=== PATIENT | female | born 1945 | race Caucasian/White ===

== ENCOUNTER → 2016-07-18 | Outpatient (CLI) | payer OTHER, MEDICARE ==
[~2016-07-18] MED LIST: ACYCLOVIR 400400 MG PO; ANTIVERT25 MG PO; ASPIR 8181 MG PO; ATIVAN PO; ATIVAN1 MG PO; ATORVASTATIN CA40 MG PO; AZITHROMYCIN 2250 MG PO; CEFTIN 250 MG250 MG PO; COMBIVENT INH; COUGH SYRU100 MG/5 M PO; CYMBALTA60 MG PO; DIPHENHIST50 MG PO; DUONEB 2.5-0.5 M3 ML INH; HYDROCODONE-AP1 EAC6 PO; I-VITE TABLET1 EACH PO; IBUPROFEN 800800 M1 PO; LEVOTHYROXIN0.125 M1 PO; LIPITOR PO; LISINOPRIL10 MG PO; MOBIC7.5 MG PO; MUCUS RELIEF400 MG PO; MUCUS RELIEF600 MG PO; OXYGEN NASAL; PERI-COLACE TA1 EACH PO; VITAMIN E400 UNIT PO; VITAMINC500 PO; WELLBUTRIN XL150 MG PO
--- NOTE | ~2016-07-18 | CARDNUC ---
[facility] [place] [address] CARDIAC NUCLEAR IMAGING REPORT Name: YEE OSORIO Room #: REG CL [facility]#: [id number] Admission: 07/18/16 Attend Phys: Jaime Quintanilla, Discharge: Date of : 43 Date of Service: 07/18/16 1701 Report #: [id number] THIS REPORT FOR: //name// CC: Jaime Quintanilla Eleazar Chavarria Elmer Canada DATE OF SERVICE: 07/18/2016 VASODILATOR GATED SPECT MYOCARDIAL PERFUSION IMAGING: Regadenoson. REFERRING PHYSICIAN: Elmer Canada MD. REFERRING METAPHYSICS TEACHER: Albino Quintanilla MD [facility]. DATE OF STUDY: 07/18/2016. INDICATIONS FOR STUDY: Preoperative evaluation for surgical clearance. RISK FACTORS: Age, history of tobacco use. CARDIAC HISTORY: None listed. CARDIAC MEDICATIONS: A blood pressure pill, she did know the name, it was 10 mg. GENDER: Female. PROCEDURE: The patient was given 0.4 mg of intravenous regadenoson (Lexiscan) administered over approximately 20 seconds. The patient did not complain of chest discomfort during the infusion. In response to complaints of chest discomfort the patient was not given intravenous aminophylline. At baseline the BP was 140/76 and the HR was 72; at completion of the regadenoson infusion the BP was 125/58 and the HR was 90. At completion of the recovery phase the BP was 132/79 and the HR was 86. Baseline EKG demonstrated normal sinus rhythm, this is normal EKG. The EKG at completion of the administration of regadenoson demonstrated no significant change in EKG during or after regadenoson administration. There was no significant ST-segment depression during or after regadenoson administration. Rhythm disturbances included none. Gated-SPECT myocardial perfusion imaging was performed using a 1-day imaging protocol and a single isotope technique. The 10.5 mCi of Tc-99m sestamibi was administered intravenously at rest; 32.1 mCi of Tc-99m sestamibi was administered intravenously within 20 seconds of the completion of the [facility] [address] [place] [address] CARDIAC NUCLEAR IMAGING REPORT Name: DEVONYEE CHRISTINERICHA Room #: REG [facility]#: [id number] Admission: 07/18/16 Attend Phys: Jaime Quintanilla, Discharge: Date of : 43 Date of Service: 07/18/16 1701 Report #: [id number] administration of regadenoson. Imaging was obtained in the supine position and when feasible, adjunctive stress imaging in the prone position was obtained. FINDINGS: The overall quality of the study was good. There was some evidence of attenuation artifact. There was no evidence of abnormal extracardiac uptake of the radionuclide. The baseline imaging study demonstrated a small mild apical defect, a small mild inferior defect and a small mild septal defect. The imaging obtained following the administration of the vasodilator demonstrated a very small, very mild inferior defect and therefore, no reversible defects seen. There was no evidence of myocardial ischemia. The patient did not have prone imaging. On gated analysis the left ventricle demonstrated normal contractility without segmental wall motion abnormality. The gated ejection fraction was 90%. The left ventricle was of normal size at rest and did not dilate with the administration of the vasodilator. The TID was 1.02. IMPRESSION: CLINICAL RESPONSE: Nonischemic. STRESS EKG RESPONSE: Nondiagnostic due to heart rate, it is inadequate to exclude ischemia. MYOCARDIAL PERFUSION STUDY: Nonischemic. FUNCTIONAL CAPACITY: Not assessed. CONCLUSIONS: The Lexiscan Cardiolite stress test demonstrates low probability for myocardial ischemia. Overall, this is a low risk Lexiscan Cardiolite stress test. <ELECTRONICALLY SIGNED> By: Jaime Quintanilla MD, FACC 07/19/16 1510 1701 1746 Jaime Quintanilla MD, FACC /nt
--- NOTE | ~2016-07-18 | 2DMMODE ---
[facility] [address] [place] [address] 2 D/M-MODE ECHOCARDIOGRAM Name: YEE OSOROI Room #: REG CL [facility]#: [id number] Admission: 07/18/16 Attend Phys: Jaime Quintanilla, Discharge: Date of : 43 Date of Service: 07/18/1614 Report #: [id number] THIS REPORT FOR: //name// APPROVED REPORT Study performed: 07/18/2016 07:22:05 EXAM: Comprehensive 2D, Doppler, and color-flow Echocardiogram Patient Location: Out-Patient Blood Pressure: 130/76 mmHg HR: 76 bpm Rhythm: NSR Other Information Study Quality: Fair/Poor parasternal window. Technically limited study due to lung disease. Indications Elevated BP Pre-Op Chest Pain Hx: HTN, HLP, COPD, obesity 2D Dimensions RVDd: 36.71 mm LVEF(%): 58.11 (>50%) IVSd: 10.98 (7-11mm) LVOT Diam: 19.17 (18-24mm) LVDd: 46.80 mm PWd: 9.57 (7-11mm) LVDs: 32.48 (25-40mm) Aortic Root: 33.43 mm Shah's LVEF: 58.11 % Volumes Left Atrial Volume (Systole) Single Plane 4CH: 34.52 mL Single Plane 2CH: 28.77 mL LA ESV Index: 18.00 mL/m2 Aortic Valve AoV Peak Jase.: 1.82 m/s AO Peak Gr.: 13.21 mmHg LV Max P.66 mmHg LV Max: 1.08 m/s [facility] [address] [address] 2 D/M-MODE ECHOCARDIOGRAM Name: YEE OSORIO Room #: REG CL [facility]#: [id number] Admission: 07/18/16 Attend Phys: Jaime Quintanilla, Discharge: Date of : 43 Date of Service: 07/18/16 0914 Report #: [id number] Mitral Valve MV PHT: 64.76 ms MV E Max Jase.: 0.78 m/s E/A Ratio: 0.8 MV A Jase.: 1.01 m/s MV Decel. Time: 223.32 ms Pulmonary Valve PV Peak Jase.: 1.15 m/s PV Peak Gr.: 5.41 mmHg Tricuspid Valve RAP Estimate: 5.00 mmHg Left Ventricle The left ventricle is normal size. Limited endcoardial definition , but no wall motion abnormalities seen. There is normal left ventricular wall thickness. Left ventricular systolic function is normal. LVEF is 60-65%. Grade I - abnormal relaxation pattern. Right Ventricle The right ventricle is normal size. The right ventricular systolic function is normal. Atria The left atrium size is normal. The right atrium size is normal. Aortic Valve Aortic valve is mildly calcified. The aortic valve is not well visualized. Trace to mild aortic regurgitation. There is no apparent aortic valvular stenosis. Mitral Valve The mitral valve is normal in structure. Trace mitral regurgitation. Tricuspid Valve The tricuspid valve is normal in structure. Tricuspid valve is not well visualized. There is no tricuspid valve regurgitation noted. Pulmonic Valve The pulmonary valve is not seen Trace pulmonic regurgitation. Great Vessels The aortic root is normal in size. Ascending aorta is not well visualized. IVC is normal in size and collapses >50% with inspiration. [facility] [place] [address] 2 D/M-MODE ECHOCARDIOGRAM Name: YEE OSORIO Room #: REG CL [facility]#: [id number] Admission: 07/18/16 Attend Phys: Jaime Quintanilla, Discharge: Date of : 43 Date of Service: 07/18/16913 Report #: [id number] Pericardium There is no pericardial effusion. <Conclusion> Limited endcoardial definition , but no wall motion abnormalities seen. LVEF is 60-65%. Grade I - abnormal relaxation pattern. Aortic valve is mildly calcified. The aortic valve is not well visualized. There is no apparent aortic valvular stenosis. Trace to mild aortic regurgitation. There is no pericardial effusion. <ELECTRONICALLY SIGNED> By: Sudheer Hearn MD, [facility] 07/18/16913 3 3 Sudheer Hearn MD, FAC /INF
== END ==
LOC: NUC 07:48
DX: Z01.818 Encounter for other preprocedural examination (principal); I10 Essential (primary) hypertension; R07.9 Chest pain, unspecified; E78.5 Hyperlipidemia, unspecified; J44.9 Chronic obstructive pulmonary disease, unspecified; E66.9 Obesity, unspecified

== ENCOUNTER 2017-05-09 12:50 | Emergency (ER) | payer OTHER, MEDICARE ==
[~2017-05-09] VITALS: Ht 162.6 cm; Wt 90.7 kg
[~2017-05-09 12:50] MED LIST changes: +LIPITOR80 MG PO
[2017-05-09] MEDS ORDERED: HYDROCODONE-AP1 EAC6 PO (13:57)
[2017-05-09 14:39] VITALS: BP 199/97
[2017-07-24] MEDS ORDERED: NEURONTIN600 MG PO (09:51)
== END 2017-05-09 14:40 | disposition home or self-care (01) ==
LOC: ER 12:50
DX: G89.29 Other chronic pain (principal); M54.5 Low back pain; I10 Essential (primary) hypertension; J44.9 Chronic obstructive pulmonary disease, unspecified; E03.9 Hypothyroidism, unspecified; E78.5 Hyperlipidemia, unspecified; Z86.14 Personal history of Methicillin resistant Staphylococcus aureus infection; Z88.8 Allergy status to other drugs, medicaments and biological substances; Z87.891 Personal history of nicotine dependence

== ENCOUNTER → 2017-07-24 | Outpatient (CLI) | payer OTHER, MEDICARE ==
[~2017-07-24] VITALS: Ht 165.1 cm; Wt 86.2 kg
[~2017-07-24] MED LIST changes: +NEURONTIN600 MG PO
--- NOTE | ~2017-07-24 | HPC ---
[facility] [address] [place] [address] PAIN MANAGEMENT CONSULTATION Name: YEE OSORIO [id number] Admission: 07/24/17 Attend Phys: Wojciech Lopez DO Discharge: Date of : 43 Report #: [id number] THIS REPORT FOR: //name// CC: Wojciech Canada DATE OF SERVICE: 07/24/2017 REFERRING PHYSICIAN: Manny Bazzi MD CHIEF COMPLAINT: Low back pain, right lower extremity pain with paresthesias. HISTORY OF PRESENT ILLNESS: As you know, the patient is a 72-year-old female who has had a longstanding history of low back pain and right lower extremity pain. She is now placing pain at 6/10. She states her pain intensified about 4 months ago, no inciting injury or trauma. She had bilateral hip injections, which provided no improvement in symptoms. She was subsequently referred to our clinic after failing treatment from the bilateral hip injections and medical management. She indicates pain is intermittent, describes the pain as burning, shooting, aching, gnawing, throbbing and sharp. She places pain score at 6/10, daily average at 6/10, worst pain has been is 10+++/10. The patient states that standing, sitting up can be quite painful as well as doing daily chores, heat or cold compresses, lying down with feet elevated tends to improve pain. She has been referred to our service to discuss requested epidural injections under fluoroscopic guidance to address lumbar radicular symptoms radiating all the way down to the right foot. PAST MEDICAL HISTORY: 1. Dyslipidemia. 2. Hypertension. 3. Chronic lung disease. 4. Thyroid disease. 5. Emotional problems. 6. Degenerative joint disease. 7. Osteoarthritis. 8. History of skin cancers. PAST SURGICAL HISTORY: 1. Right total shoulder arthroplasty. 2. Total hysterectomy. SOCIAL HISTORY: The patient reports she is a nonsmoker, but review of chart shows she is a current every day smoker. She denies IV or illicit drug use, admits to approximately 1-2 glasses of red wine per day. She is a retired registered nurse. She is not receiving workmen's compensation nor is she trying [address] [address] PAIN MANAGEMENT CONSULTATION Name: YEE OSORIO Room #: REG [facility].#: [id number] Admission: 07/24/17 Attend Phys: Wojciech Lopez DO Discharge: Date of : 43 Report #: [id number] to obtain disability benefits. She is not in litigation in regards to her pain. REVIEW OF SYSTEMS: Positive for weight gain, decrease in appetite, fatigue and weakness, eye disease, double vision, tinnitus, shortness of breath with walking or lying flat, chronic coughs, asthma, wheezing, loss of appetite, changes in bowel movements, change of force or stream of urination, incontinence and dribbling to urine, varicose veins, numbness and tingling sensations, memory loss with confusion, nervousness, depression, thyroid disease, slow to heal after cuts. All other review of systems negative per 12-point review of systems other than those listed in history of present illness. PAIN IMPACT SCORE: 66/70 indicating near complete interference of daily activities secondary to pain. ALLERGIES: FENTANYL. CURRENT MEDICATIONS: Gabapentin 600 mg 3 times a day, hydrocodone 5/325 one tab every 8 hours p.r.n. for pain, atorvastatin 80 mg per day, lorazepam 1 mg p.r.n., duloxetine 60 mg once a day, Meloxicam 7.5 mg twice a day, vitamin E 400 units per day, ascorbic acid 500 mg per day, aspirin 81 mg per day, vitamin supplementation 1 tab per day, acyclovir 400 mg once a day, guaifenesin 400 mg twice a day, DuoNeb 4 times a day, diphenhydramine 50 mg p.o. at bedtime, Combivent p.r.n., lisinopril 10 mg per day, levothyroxine 125 mcg per day. IMAGING: MRI lumbar spine obtained 02/22/2017, shows T12-L1 mild disk bulge. L1-L2, mild disk bulge. L2-L3, mild disk bulge and facet arthrosis. L3-L4, mild disk bulge with mild facet arthrosis. L4-L5, broad-based osteophyte complex, moderate facet arthrosis. There are laminectomy changes at this level, severe right and mild left neural foraminal stenosis. L5-S1, broad-based disk bulge eccentric to the left, laminectomy changes at this level, mild facet arthrosis, mild bilateral foraminal stenosis, conus and cauda equina are unremarkable. PQRS: The patient has known osteoarthritis. No rheumatoid arthritis. She is indicating pain intensity of 6/10. She is a fall risk. She has had a fall in the last 3 months. She is not on blood thinner. She is treated for hypertension. She is on opioid contract, taking opioids currently. She shows a moderate risk for opioid addiction. Functional assessment pain impact tools 66/70 indicating near complete interference of daily activities secondary to pain. PHYSICAL EXAMINATION: VITAL SIGNS: Blood pressure 138/66, pulse 89, respiratory rate 16 and unlabored, the patient is 94% on room air, height 5 feet 5 inches tall, weight 190 pounds, BMI calculated 31.6. GENERAL: Well-developed, well-nourished, well-hydrated 72-year-old female, [facility] [address] [place] [address] PAIN MANAGEMENT CONSULTATION Name: YEE OSORIO Room #: REG [facility]#: [id number] Admission: 07/24/17 Attend Phys: Wojciech Lopez DO Discharge: Date of : 43 Report #: [id number] appearing her stated age, placing current pain score at 6/10. HEENT: Normocephalic, atraumatic. Pupils are equal, round, and reactive to light. Extraocular muscles are intact. Sclerae are nonicteric without injection. NEUROLOGIC: Cranial nerves 2 through 12 are grossly intact. Speech is fluent. The patient deemed a fair historian. LUNGS: Clear. No wheezes, rhonchi, or rales. CARDIOVASCULAR: Regular. No appreciable gallop or rub. ABDOMEN: Soft, nontender, nondistended. EXTREMITIES: Show no clubbing, no cyanosis, and no edema. MUSCULOSKELETAL: Lower extremity strength appears equal and symmetrical 5/5. Seated straight leg raising negative. Supine straight leg raising negative. Melvin's test is negative. Modified Gaenslen's positive for axial low back pain. Ankle clonus negative. Babinski is negative. The patient has antalgic gait favoring right lower extremity over left. Muscle bulk and tone equal and symmetrical in the lower extremities, intact to light touch from L1 through S2 dermatomes. Patellar reflexes and ankle reflexes equal and symmetrical. No focal neurologic deficits. ASSESSMENT: 1. Lumbar radiculopathy. 2. Displacement of lumbar intervertebral disk with radiculopathy. 3. Lumbosacral spondylosis with radiculopathy. 4. Foraminal stenosis of lumbar spine. 5. Chronic intractable pain. PLAN: 1. Based on today's physical exam and history the patient is providing, the description the patient uses in regards to pain as well as the distribution of symptoms likely source of the patient's pain is lumbar radiculopathy. We have discussed with the patient the findings of her MRI, it does appear that she is suffering from foraminal stenosis causing the right lower extremity symptoms. As you are aware, the patient has severe foraminal stenosis on the right at the L4-L5 level, which does correlate with symptoms. She has failed conservative treatment with medication management and she was subsequently referred to our clinic to trial injection therapy. We also discussed the other treatment options that are available for lumbar radicular pain today. These would include the following. We discussed physical therapy, stretching exercises, core strengthening as well as any effort at weight loss that can be obtained. We discussed medication management with escalating the doses of neuropathic pain medications and additional nonsteroidal anti-inflammatory or rotation in anti-inflammatory therapy. We discussed the epidural injection for which the patient was referred to our clinic, spinal cord stimulator therapy and surgical options. After reviewing risks and benefits of all proposed treatment options, the patient [address] [address] PAIN MANAGEMENT CONSULTATION Name: OSORIOYEE Room #: REG [facility]#: [id number] Admission: 07/24/17 Attend Phys: Wojciech Lopez DO Discharge: Date of : 43 Report #: [id number] chose to begin with epidural injection under fluoroscopic guidance. The patient was advised the risks and benefits of a lumbar epidural injection, these risks include, but are not necessarily limited to bleeding, bruising, infection, worsening pain, no relief of pain, also risk of temporary or permanent muscle weakness, temporary or permanent nerve damage, possible paralysis and . The patient states she understood and wished to proceed. 2. No medication changes were made at today's visit. The patient will continue current medical therapy as previously prescribed. 3. The patient will return to our clinic on an as needed basis for next in a series of epidural injections. 4. We wish to thank Dr. Bazzi for the referral of this patient to our clinic. We will keep you apprised of her response to treatment as we address her lumbar radicular symptoms. Again, we wish to thank you for the opportunity to participate in her care. PROCEDURE NOTE DESCRIPTION OF PROCEDURE: Lumbar epidural steroid injection under fluoroscopic guidance. After obtaining written consent, the patient was taken back to fluoroscopy suite, placed in prone position with pillow under abdomen to decrease lumbar lordosis. Skin overlying lumbosacral area then prepped and draped in aseptic fashion. Lumbar intervertebral space was identified by AP fluoroscopy. Skin and subcutaneous tissue overlying target site of injection was anesthetized with 3 mL of 1% lidocaine. A 20-gauge 3-1/2-inch Tuohy needle advanced under fluoroscopic guidance towards the epidural space using right paramedian approach. Epidural space identified using loss of resistance to air technique. After negative aspiration for heme or cerebrospinal fluid, 1 mL of Omnipaque was injected. A lumbar epidurogram was confirmed using both AP and lateral fluoroscopy. After negative aspiration for heme or cerebrospinal fluid, 5 mL of a solution containing 2 mL 40 mg per mL, 80 mg total triamcinolone, 3 mL lidocaine 1% injected slowly. Needle retracted care home, flushed with 1 mL of 1% lidocaine and removed. Sterile bandage placed over injection site. No new motor deficits present in lower extremity following procedure. The patient tolerated the procedure well, carefully escorted to recovery room in stable condition. No apparent complication. After meeting discharge criteria, the patient discharged home. <ELECTRONICALLY SIGNED> By: Wojciech Lopez DO 07/31/17 1207 1555 1941 Wojciech Lopez DO /nt
[2017-07-24 09:24] VITALS: BP 138/66
== END | disposition home or self-care (01) ==
LOC: PAIN 06:47
DX: M51.16 Intervertebral disc disorders with radiculopathy, lumbar region (principal); M47.27 Other spondylosis with radiculopathy, lumbosacral region; M48.061 Spinal stenosis, lumbar region without neurogenic claudication; G89.29 Other chronic pain; E78.5 Hyperlipidemia, unspecified; I10 Essential (primary) hypertension; J44.9 Chronic obstructive pulmonary disease, unspecified; E07.9 Disorder of thyroid, unspecified; M19.90 Unspecified osteoarthritis, unspecified site; Z85.828 Personal history of other malignant neoplasm of skin; Z90.710 Acquired absence of both cervix and uterus; Z96.611 Presence of right artificial shoulder joint; Z88.8 Allergy status to other drugs, medicaments and biological substances; Z79.899 Other long term (current) drug therapy; Z79.82 Long term (current) use of aspirin; Z98.890 Other specified postprocedural states

== ENCOUNTER → 2017-11-12 | Outpatient (CLI) | payer OTHER, MEDICARE ==
[~2017-11-12] VITALS: Ht 165.1 cm; Wt 88.8 kg
--- NOTE | ~2017-11-12 | HPC ---
[address] [address] PAIN MANAGEMENT CONSULTATION Name: YEE OSORIO Room #: REG [facility].#: [id number] Admission: 11/12/17 Attend Phys: Wojciech Lopez DO Discharge: Date of : 43 Report #: [id number] THIS REPORT FOR: //name// CC: Wojciech Canada MD DATE OF SERVICE: 11/12/2017 CHIEF COMPLAINT: Low back pain, right lower extremity pain and paresthesias. HISTORY OF PRESENT ILLNESS: As you know, the patient is a 72-year-old female who returns today in followup visit to undergo next in the series of epidural injections. The patient was referred to our clinic by Dr. Manny Bazzi for trial of epidural injections. We saw the patient in consultation on 07/24/2017, at that visit she underwent an epidural injection under fluoroscopic guidance. She returns today in followup visit to undergo next in the series. This is the third and final in the series of epidural injections, next injection would be available 02/23/2018. She has requested to undergo the epidural injection today to address 5/10 pain. She denies new injury, new trauma or any changes in medical history since our last visit. ALLERGIES: FENTANYL and HYDROMORPHONE. CURRENT MEDICATIONS: Gabapentin, hydrocodone, atorvastatin, lorazepam, duloxetine, oxygen concentrated, Meloxicam, vitamin E, ascorbic acid, aspirin, vitamin supplementation, Senokot S, acyclovir, guaifenesin, ipratropium bromide, diphenhydramine, lisinopril and levothyroxine. SOCIAL HISTORY: The patient reports herself as a nonsmoker, but review of chart once again indicates an everyday smoker. Denies IV or illicit drug use. Admits to 2 glasses of wine per day. She is unaccompanied. PQRS: The patient has known osteoarthritis of the lumbar spine, no rheumatoid arthritis. She is indicating pain intensity of 5/10. She is not a fall risk and has not had a fall in the last 3 months. She is not on blood thinners. She is treated for hypertension. She is on opioids for greater than 6 weeks. She has a moderate risk for opioid addiction. Pain impact score is rated at 66/70 once again today. PHYSICAL EXAMINATION: VITAL SIGNS: Blood pressure 158/97, pulse is 98, respiratory rate 16 and unlabored, the patient is 97% on room air, height 5 feet 5 inches tall, weight 195.8 pounds, and BMI calculated 32.6. GENERAL: Well-developed, well-nourished, well-hydrated 72-year-old female, [place] [address] PAIN MANAGEMENT CONSULTATION Name: YEE OSORIO CHRISTINERICHA Room #: REG [facility]#: [id number] Admission: 11/12/17 Attend Phys: Wojciech Lopez DO Discharge: Date of : 43 Report #: [id number] appearing stated age, she is placing current pain score at 5/10. HEENT: Normocephalic, atraumatic. Pupils are responsive. Extraocular muscles are intact. Speech is fluent for patient. EXTREMITIES: Show no clubbing, no cyanosis. MUSCULOSKELETAL: Lower extremity strength equal and symmetrical, but noted deconditioning bilaterally. Seated straight leg raising negative. Supine straight leg raising mildly positive. Melvin's test negative. Modified Gaenslen's positive for axial low back pain. ASSESSMENT: 1. Symptomatic lumbar radiculopathy. 2. Displacement of lumbar intervertebral disk with radiculopathy. 3. Lumbosacral spondylosis with radiculopathy. 4. Neural foraminal stenosis of the lumbar spine. 5. Lumbar degeneration. 6. Chronic intractable pain. PLAN: 1. The patient returns today in followup visit to undergo the third and final in series of lumbar epidural injections under fluoroscopic guidance. The patient has undergone epidural injections in July, once again in August, and now in October. Next available epidural injection would be 02/23/2018. The patient was advised of such today. She does wish to utilize the third in the series of epidural injections at this visit. 2. No medication changes made at today's visit. The patient will continue current medical therapy as previously prescribed. 3. We will see the patient back in followup visit in February for possible next in the series of epidural injections. PROCEDURE NOTE DESCRIPTION OF PROCEDURE: Lumbar epidural steroid injection under fluoroscopic guidance. This is the third procedure of the first series that the patient is undergoing. After obtaining written consent, the patient was taken back to the fluoroscopy suite, placed in a prone position with pillow under the abdomen to decrease lumbar lordosis. The skin overlying the lumbosacral area was then prepped and draped in aseptic fashion. The lumbar vertebral interspace was then identified by AP fluoroscopy. The skin and subcutaneous tissue overlying the target site of injection was anesthetized with 3 mL 1% lidocaine. A 20-gauge 3-1/2-inch Tuohy needle was then advanced under fluoroscopic guidance towards the epidural space using a paramedian approach. The epidural space was identified using loss of resistance to air technique. After negative aspiration [address] [address] PAIN MANAGEMENT CONSULTATION Name: YEE OSORIO Room #: REG [facility]#: [id number] Admission: 11/12/17 Attend Phys: Wojciech Lopez DO Discharge: Date of : 43 Report #: [id number] for heme or cerebrospinal fluid, a total of 0.4 mL of Omnipaque was injected. A lumbar epidurogram was confirmed using both AP and lateral fluoroscopy. After negative aspiration for heme or cerebrospinal fluid, 5 mL of a solution containing 2 mL 40 mg per mL, 80 mg total triamcinolone, 3 mL lidocaine 1% was injected in increments. Contrast spread was noted posterior epidural space. The needle was then retracted approximately half way and needle tract flushed with 1 mL of 1% lidocaine. Needle was then removed. There were no apparent sensory or motor deficits in the lower extremity following the procedure. A sterile bandage was placed over the injection site. The heart rate, pulse, oximetry and blood pressure were continuously monitored after the procedure. There were no apparent complications. The patient tolerated the procedure well and was carefully escorted to the recovery room in stable condition. There were no apparent complications. After meeting discharge criteria, the patient was then discharged home. By: 0730 1725 Wojciech Lopez DO /nt
[2017-11-12 11:07] VITALS: BP 158/97
== END | disposition home or self-care (01) ==
LOC: PAIN 06:35
DX: M51.16 Intervertebral disc disorders with radiculopathy, lumbar region (principal); M47.27 Other spondylosis with radiculopathy, lumbosacral region; M48.061 Spinal stenosis, lumbar region without neurogenic claudication; G89.29 Other chronic pain; I10 Essential (primary) hypertension; J44.1 Chronic obstructive pulmonary disease with (acute) exacerbation; Z88.8 Allergy status to other drugs, medicaments and biological substances; F17.210 Nicotine dependence, cigarettes, uncomplicated; Z79.891 Long term (current) use of opiate analgesic; Z79.899 Other long term (current) drug therapy

== ENCOUNTER 2018-03-05 13:07 | Emergency (ER) | payer OTHER, MEDICARE ==
[~2018-03-05] VITALS: Ht 165.1 cm; Wt 77.1 kg
--- NOTE | ~2018-03-05 | EKG ---
[address] [place] [address] ELECTROCARDIOGRAM REPORT Name: YEE OSORIO [facility] [id number] Admission: 03/05/18 Attend Phys: Discharge: 03/05/18 Date of : 43 Report #: [id number] THIS REPORT FOR: //name// [facility] ED Test Date: 2018-03-05 Test Time: 13:27:02 Pat Name: YEE OSORIO Department: Room: Gender: F Prosthodontist/Owner: JLCRISTIANO : 1945 Requested By: Jorden Wilks Order Number: [id number] MD: Antonio Quevedo Measurements Intervals [place] Rate: 81 P: 72 NH: 123 QRS: 79 QRSD: 100 T: 66 QT: 395 QTc: 459 Interpretive Statements Sinus rhythm Borderline low voltage, extremity leads Compared to ECG 04/12/2014 18:43:46 No significant changes Electronically Signed On 03-05-2018 15:46:58 APPLICATION DEVELOPMENT DIRECTOR by Antonio Quevedo [email or web address] <ELECTRONICALLY SIGNED> By: Antonio Quevedo MD 03/05/18 1546 1327 26 Antonio Quevedo MD /FRANK
[2018-03-05] MEDS ORDERED: ASPIRIN325 PO (14:06)
[2018-03-05 14:10] LABS: HEMATOCRIT 43.4 % (37.0-47.0); HEMOGLOBIN 14.6 gm/dL (12.0-15.0); MCH 30.4 pg (26.0-34.0); MCHC 33.7 g/dL (28.0-37.0); MCV 90.3 fL (80.0-100.0); PLATELET COUNT 184 thou/uL (150-400); RBC 4.81 mil/uL (4.20-5.00); RDW 13.8 % (10.5-14.5); WBC 7.6 thou/uL (4.0-11.0)
[2018-03-05 14:20] LABS: ANION GAP 1 mmol/L (7-16); BUN 12 mg/dL (7-18); CALCIUM 9.2 mg/dL (8.5-10.1); CHLORIDE 102 mmol/L (98-107); CO2 35 mmol/L (21-32); CREATININE 0.6 mg/dL (0.6-1.0); GLUCOSE 135 mg/dL (74-106); POTASSIUM 4.1 mmol/L (3.5-5.1); SODIUM 138 mmol/L (136-145); TROPONIN-I <0.06 ng/mL (<0.06)
[2018-03-05 14:43] LABS: ABSOLUTE NEUTROPHILS 5.2 thou/uL (1.4-8.2); ANISOCYTOSIS SLIGHT
[2018-03-05 17:14] VITALS: BP 142/68
== END 2018-03-05 14:30 | disposition home or self-care (01) ==
LOC: ER 13:07
PROVIDERS: Emergency Medicine
DX: R07.89 Other chest pain (principal); J44.9 Chronic obstructive pulmonary disease, unspecified; Z87.891 Personal history of nicotine dependence; Z88.4 Allergy status to anesthetic agent; Z88.8 Allergy status to other drugs, medicaments and biological substances; Z90.710 Acquired absence of both cervix and uterus; Z96.611 Presence of right artificial shoulder joint

== ENCOUNTER 2019-03-21 18:46 | Emergency (ER) | payer OTHER, MEDICARE ==
[~2019-03-21] VITALS: Ht 160 cm; Wt 90.7 kg
[~2019-03-21 18:46] MED LIST changes: +ASPIRIN325 PO
[2019-03-21 19:11] LABS: ABSOLUTE NEUTROPHILS 5.7 thou/uL (1.4-8.2); BASOPHILS 0.5 % (0.0-2.0); EOSINOPHILS 1.5 % (0.0-3.0); HEMATOCRIT 45.2 % (37.0-47.0); MCHC 33.1 g/dL (28.0-37.0); MCV 87.5 fL (80.0-100.0); MONOCYTES 6.6 % (1.0-8.0); PLATELET COUNT 128 thou/uL (150-400); POLYS 82.4 % (36.0-66.0); RBC 5.17 mil/uL (4.20-5.00); RDW 13.4 % (10.5-14.5); WBC 6.9 thou/uL (4.0-11.0)
[2019-03-21 19:19] LABS: CALCIUM 8.8 mg/dL (8.5-10.1); CREATININE 0.7 mg/dL (0.6-1.0); POTASSIUM 3.7 mmol/L (3.5-5.1)
[2019-03-21 19:25] LABS: ALBUMIN 3.9 g/dL (3.4-5.0); TOTAL BILIRUBIN 0.8 mg/dL (<0.1-1.0); TOTAL PROTEIN 7.4 g/dL (6.4-8.2)
[2019-03-21 22:38] LABS: URINE BILIRUBIN NEGATIVE (Negative); URINE BLOOD NEGATIVE (Negative); URINE CLARITY CLEAR; URINE COLOR YELLOW; URINE GLUCOSE-RANDOM* NEGATIVE (Negative); URINE KETONES NEGATIVE (Negative); URINE LEUKOCYTES-REFLEX NEGATIVE (Negative); URINE NITRITE-REFLEX NEGATIVE (Negative); URINE PROTEIN (DIPSTICK) NEGATIVE (Negative); URINE SPECIFIC GRAVITY <= 1.005 (1.005-1.035)
[2019-03-21] MEDS ORDERED: ONDANSETRON HCL4 M2 PO (22:40)
[2019-03-21 23:45] VITALS: BP 165/66
--- NOTE | 2019-03-22 11:17 | EKG ---
[place] [address] [facility] [address] ELECTROCARDIOGRAM REPORT Name: YEE OSORIO [facility]: [facility] [id number] Admission: 03/21/19 Attend Phys: Discharge: 03/21/19 Date of : 43 Report #: [id number] THIS REPORT FOR: //name// [facility] ED Test Date: 2019-03-21 Test Time: 19:19:10 Pat Name: YEE OSORIO Department: Room: Gender: F Credit Director: MARCELINO : 1945 Requested By: Yudy Teresa Order Number: [id number] MD: Antonio Quevedo Measurements Intervals [place] Rate: 106 P: 74 NH: 121 QRS: 77 QRSD: 95 T: 73 QT: 340 QTc: 452 Interpretive Statements Sinus tachycardia Borderline low voltage, extremity leads Compared to ECG 03/05/2018 13:27:02 Sinus rhythm no longer present Electronically Signed On 03-22-2019 11:16:55 THREADING MACHINE OPERATOR by Antonio Quevedo [email or web address] <ELECTRONICALLY SIGNED> By: Antonio Quevedo MD 03/22/19 1116 D: 121918 18 Antonio Quevedo MD /FRANK
== END 2019-03-21 23:45 | disposition home or self-care (01) ==
LOC: ER 18:46
PROVIDERS: Physician Assistant
DX: R11.2 Nausea with vomiting, unspecified (principal); R19.7 Diarrhea, unspecified; J44.9 Chronic obstructive pulmonary disease, unspecified; Z87.891 Personal history of nicotine dependence; Z88.6 Allergy status to analgesic agent; Z88.5 Allergy status to narcotic agent; Z79.82 Long term (current) use of aspirin; Z79.899 Other long term (current) drug therapy; Z96.611 Presence of right artificial shoulder joint; Z90.710 Acquired absence of both cervix and uterus

== ENCOUNTER 2020-09-27 08:49 | Emergency (ER) | payer OTHER ==
[~2020-09-27] VITALS: Ht 162.6 cm; Wt 90.7 kg
[~2020-09-27 08:49] MED LIST changes: +ONDANSETRON HCL4 M2 PO
[2020-09-27] MEDS ORDERED: METHOCARBAMOL750 MG PO (11:35)
[2020-09-27] MEDS ORDERED: TORADOL 10 MG T10 MG PO (11:35)
[2020-09-27 12:18] VITALS: BP 164/68
== END 2020-09-27 12:20 | disposition home or self-care (01) ==
LOC: ER 08:49
DX: S23.3XXA Sprain of ligaments of thoracic spine, initial encounter (principal); J44.9 Chronic obstructive pulmonary disease, unspecified; Z96.611 Presence of right artificial shoulder joint; Z90.711 Acquired absence of uterus with remaining cervical stump; Z79.899 Other long term (current) drug therapy; Z79.82 Long term (current) use of aspirin; Z88.8 Allergy status to other drugs, medicaments and biological substances; Z88.6 Allergy status to analgesic agent; Z87.891 Personal history of nicotine dependence; X58.XXXA Exposure to other specified factors, initial encounter; Y93.89 Activity, other specified; Y92.89 Other specified places as the place of occurrence of the external cause; Y99.8 Other external cause status

== ENCOUNTER 2020-10-02 22:25 | Emergency (ER) | payer MEDICARE ==
[~2020-10-02] VITALS: Ht 157.5 cm; Wt 104.3 kg
[~2020-10-02 22:25] MED LIST changes: +METHOCARBAMOL750 MG PO; +TORADOL 10 MG T10 MG PO
[2020-10-02] MEDS ORDERED: GABAPENTIN600 M1 PO (22:45)
[2020-10-02] MEDS ORDERED: ZETIA10 MG PO (22:46)
[2020-10-02] MEDS ORDERED: TRAMADOL 50 MG50 MG PO (22:48)
[2020-10-02] MEDS ORDERED: TIZANIDINE HCL4 M1 PO (22:50)
[2020-10-02] MEDS ORDERED: ASA81BEC PO (22:53)
[2020-10-02] MEDS ORDERED: I-VITE TABLET1 EACH PO (22:53)
[2020-10-02] MEDS ORDERED: SYNTHROID150 MCG PO (22:54)
[2020-10-02] MEDS ORDERED: LASIX 40 MG TAB40 MG PO (22:55)
[2020-10-03] MEDS ORDERED: LIDODERM1 EACH TOP ×2 (01:20→20:41)
[2020-10-03] MEDS ORDERED: NORCO5 PO (01:20)
[2020-10-03] MEDS ORDERED: MEDROLDOSEPACK PO (01:20)
[2020-10-03 01:45] VITALS: BP 197/90
--- NOTE | 2020-10-03 14:36 | EKG ---
[place] [address] [facility] [place] [address] ELECTROCARDIOGRAM REPORT Name: YEE OSORIO [facility]: [facility] [id number] Admission: 10/02/20 Attend Phys: Discharge: 10/03/20 Date of : 43 Report #: [id number] [facility] ED Test Date: 2020-10-02 Test Time: 22:30:11 Pat Name: YEE OSORIO Department: Room: Gender: F Kick Plate Installer: MPARCassi : 1945 Requested By: Mari Thorne Order Number: [id number] MD: Edwin Guillen Measurements Intervals [place] Rate: 88 P: 70 DC: 143 QRS: 72 QRSD: 98 T: 63 QT: 362 QTc: 438 Interpretive Statements Sinus rhythm Compared to ECG 03/21/2019 19:19:10 Sinus tachycardia no longer present Electronically Signed On 10-03-2020 14:36:26 CDT by Edwin Guillen [email or web address] <ELECTRONICALLY SIGNED> By: Edwin Guillen MD, [facility] 10/03/20 1436 29 Edwin Guillen MD, FACC /EPI
== END 2020-10-03 01:50 | disposition home or self-care (01) ==
LOC: ER 22:25
DX: M54.5 Low back pain (principal); G89.29 Other chronic pain; R07.89 Other chest pain; J44.9 Chronic obstructive pulmonary disease, unspecified; F17.210 Nicotine dependence, cigarettes, uncomplicated; Z90.710 Acquired absence of both cervix and uterus; Z88.5 Allergy status to narcotic agent

== ENCOUNTER 2020-10-03 19:46 | Emergency (ER) | payer MEDICARE ==
[~2020-10-03] VITALS: Ht 157.5 cm; Wt 81.7 kg
[~2020-10-03 19:46] MED LIST changes: +ASA81BEC PO; +GABAPENTIN600 M1 PO; +LASIX 40 MG TAB40 MG PO; +LIDODERM1 EACH TOP; +MEDROLDOSEPACK PO; +NORCO5 PO; +SYNTHROID150 MCG PO; +TIZANIDINE HCL4 M1 PO; +TRAMADOL 50 MG50 MG PO; +ZETIA10 MG PO
[2020-10-03] MEDS ORDERED: LIDODERM1 EACH TOP (20:41)
[2020-10-03 23:27] VITALS: BP 159/72
== END 2020-10-03 23:28 | disposition home or self-care (01) ==
LOC: ER 19:46
DX: R10.32 Left lower quadrant pain (principal); M54.5 Low back pain; R06.02 Shortness of breath; Z88.6 Allergy status to analgesic agent; Z88.5 Allergy status to narcotic agent; Z87.891 Personal history of nicotine dependence; Z79.2 Long term (current) use of antibiotics; Z79.82 Long term (current) use of aspirin; Z90.710 Acquired absence of both cervix and uterus

== ENCOUNTER 2020-10-12 10:07 | Emergency (ER) | payer MEDICARE ==
[~2020-10-12] VITALS: Ht 165.1 cm; Wt 90.7 kg
[2020-10-12 11:31] LABS: ABSOLUTE NEUTROPHILS 9.2 thou/uL (1.4-8.2); BASOPHILS 0.6 % (0.0-2.0); EOSINOPHILS 1.2 % (0.0-3.0); HEMATOCRIT 42.6 % (37.0-47.0); HEMOGLOBIN 13.5 gm/dL (12.0-15.0); LYMPHOCYTES 7.3 % (24.0-44.0); MCH 28.2 pg (26.0-34.0); MCHC 31.7 g/dL (28.0-37.0); MONOCYTES 4.3 % (1.0-8.0); PLATELET COUNT 193 thou/uL (150-400); POLYS 86.6 % (36.0-66.0); RBC 4.79 mil/uL (4.20-5.00); RDW 15.7 % (10.5-14.5); WBC 10.6 thou/uL (4.0-11.0)
[2020-10-12 11:37] LABS: ANION GAP 5 mmol/L (7-16); BUN 15 mg/dL (7-18); CALCIUM 8.9 mg/dL (8.5-10.1); CHLORIDE 102 mmol/L (98-107); CO2 31 mmol/L (21-32); CREATININE 1.1 mg/dL (0.6-1.0); GLUCOSE 105 mg/dL (74-106); POTASSIUM 5.1 mmol/L (3.5-5.1); SODIUM 138 mmol/L (136-145)
[2020-10-12 11:47] LABS: DIRECT BILIRUBIN < 0.1 mg/dL (<0.1-0.2); LIPASE 90 U/L (73-393); SGOT 31 U/L (15-37); SGPT 31 U/L (14-59); TOTAL BILIRUBIN 0.5 mg/dL (0.2-1.0); TOTAL PROTEIN 7.6 g/dL (6.4-8.2); TROPONIN-I <0.06 ng/mL (<0.06)
[2020-10-12] MEDS ORDERED: MEDROLDOSEPACK PO (13:22)
[2020-10-12 14:00] VITALS: BP 140/70
--- NOTE | 2020-10-12 14:44 | EKG ---
[place] [address] [facility] [place] [address] ELECTROCARDIOGRAM REPORT Name: YEE OSORIO [facility] [id number] Admission: 10/12/20 Attend Phys: Discharge: 10/12/20 Date of : 43 Report #: [id number] [facility] ED Test Date: 2020-10-12 Test Time: 11:11:14 Pat Name: YEE OSORIO Department: Room: Gender: F Hand Presser: RAZIA : 1945 Requested By: Mari Thorne Order Number: [id number] MD: Edwin Guillen Measurements Intervals [place] Rate: 79 P: 80 WI: 143 QRS: 71 QRSD: 95 T: 65 QT: 379 QTc: 435 Interpretive Statements Sinus rhythm Compared to ECG 10/02/2020 22:30:11 No significant changes Electronically Signed On 10-12-2020 14:44:27 CDT by Edwin Guillen [email or web address] <ELECTRONICALLY SIGNED> By: Edwin Guillen MD, [facility] 10/12/20 1444 1111 1111 Edwin Guillen MD, FACVikki /EPI
== END 2020-10-12 14:00 | disposition home or self-care (01) ==
LOC: ER 10:07
PROVIDERS: Emergency Medicine
DX: R07.89 Other chest pain (principal); N64.4 Mastodynia; J44.9 Chronic obstructive pulmonary disease, unspecified; M19.90 Unspecified osteoarthritis, unspecified site; Z96.611 Presence of right artificial shoulder joint; Z90.710 Acquired absence of both cervix and uterus; Z99.81 Dependence on supplemental oxygen; Z79.82 Long term (current) use of aspirin; Z72.89 Other problems related to lifestyle; Z87.891 Personal history of nicotine dependence; Z88.5 Allergy status to narcotic agent

== ENCOUNTER 2020-10-23 17:15 | Inpatient (IN) | payer MEDICARE ==
[~2020-10-23] VITALS: Ht 165.1 cm; Wt 97.1 kg
[2020-10-23 17:18] VITALS: BP 127/65
[2020-10-23 17:49] LABS: HEMATOCRIT 38.8 % (37.0-47.0); HEMOGLOBIN 12.5 gm/dL (12.0-15.0); MCH 28.9 pg (26.0-34.0); MCHC 32.3 g/dL (28.0-37.0); MCV 89.7 fL (80.0-100.0); RBC 4.33 mil/uL (4.20-5.00); RDW 16.4 % (10.5-14.5); WBC 9.5 thou/uL (4.0-11.0)
[2020-10-23 18:07] LABS: ALBUMIN 3.6 g/dL (3.4-5.0); CALCIUM 8.6 mg/dL (8.5-10.1); CREATININE 1.4 mg/dL (0.6-1.0); TOTAL BILIRUBIN 0.5 mg/dL (0.2-1.0); TOTAL PROTEIN 7.1 g/dL (6.4-8.2)
[2020-10-23 18:11] LABS: POTASSIUM 6.8 mmol/L (3.5-5.1); TROPONIN-I 2.05 ng/mL (<0.06)
[2020-10-23 18:16] LABS: URINE BILIRUBIN NEGATIVE (Negative); URINE BLOOD NEGATIVE (Negative); URINE CLARITY CLEAR; URINE COLOR YELLOW; URINE GLUCOSE-RANDOM* NEGATIVE (Negative); URINE KETONES TRACE (Negative); URINE LEUKOCYTES-REFLEX TRACE (Negative); URINE NITRITE-REFLEX NEGATIVE (Negative); URINE PROTEIN (DIPSTICK) NEGATIVE (Negative); URINE UROBILINOGEN 0.2 E.U./dl (0.2-1.0)
[2020-10-23 18:18] LABS: BE(vivo) -0.3 mmol/L (-2 to +3); HCO3 26.2 mmol/L (22.0-26.0); PCO2 50.6 mmHg (35.0-45.0); PO2 77.9 mmHg (80.0-100.0); pH 7.332 (7.360-7.450); sO2 94.6 % (92.0-98.0)
[2020-10-23] MEDS ORDERED: OXYCODONE HCL10 MG PO (19:04)
[2020-10-23] MEDS ORDERED: LEVOTHYROXINE112 MCG PO (19:07)
[2020-10-23] MEDS ORDERED: CLARITIN10 MG PO (19:12)
[2020-10-23] MEDS ORDERED: FAMOTIDINE 20 M20 MG PO (19:13)
[2020-10-23 19:20] LABS: CALCIUM 8.1 mg/dL (8.5-10.1); CREATININE 1.4 mg/dL (0.6-1.0)
[2020-10-23 19:22] LABS: POTASSIUM 4.8 mmol/L (3.5-5.1)
[2020-10-23 19:28] LABS: ALBUMIN 3.4 g/dL (3.4-5.0); TOTAL BILIRUBIN 0.3 mg/dL (0.2-1.0); TOTAL PROTEIN 6.7 g/dL (6.4-8.2)
[2020-10-23 22:15] VITALS: BP 129/60
[2020-10-23 22:21] LABS: INR 0.97; PROTIME 10.6 Seconds (10.5-12.1)
[2020-10-23 22:35] LABS: APTT 24.8 Seconds (24.5-32.8)
[2020-10-23 23:05] VITALS: BP 127/87
[2020-10-23 23:25] VITALS: BP 159/76
--- NOTE | 2020-10-24 01:42 | NUR ---
PT ADMITTED TO ROOM 213 AROUND 2330, ALERT AND ORIENTEDX3, DENIES CP OR SOB, C/O PAIN TO THE RIGHT BREAST, ADMISSION ASSESSMENT, EDUCATION AND HX COMPLETED, MEDS GIVEN PER QUIQUE, SR ON TELE, HEPANIN GTT INITIATED IN THE ER, INFUSING PER PROTOCOL, REMAINS NPO, NO NEEDS AT THIS TIME, WILL CONTINUE TO MONITOR PER POC
[2020-10-24 04:35] VITALS: BP 139/56
[2020-10-24 04:54] LABS: CHOLESTEROL 138 mg/dL (<200); HDL CHOLESTEROL 47 mg/dL (>40); LDL CHOLESTEROL 60 mg/dL (<100); TC:HDL 2.9 Ratio (Not establshd); TRIGLYCERIDE 155 mg/dL (<150); VLDL 31 mg/dL (<40)
[2020-10-24 04:57] LABS: SERUM ASSESSMENT Clear
--- NOTE | 2020-10-24 07:50 | EKG ---
[address] [address] ELECTROCARDIOGRAM REPORT Name: YEE OSORIO Room #: 213-P ADM IN M.R.#: [id number] Admission: 10/23/20 Attend Phys: Pedro Luis Hernandez MD Discharge: Date of : 43 Report #: [id number] [facility] ED Test Date: 2020-10-23 Test Time: 17:47:23 Pat Name: YEE OSORIO Department: Room: 213 Gender: F Machine Set Up Operator Paper Goods: jamar : 1945 Requested By: Alison Gifford Order Number: [id number] MD: Edwin Guillen Measurements Intervals [place] Rate: 110 P: 67 NV: 126 QRS: 81 QRSD: 94 T: 50 QT: 331 QTc: 448 Interpretive Statements Sinus tachycardia Borderline right axis deviation Compared to ECG 10/12/2020 11:11:14 Sinus rhythm no longer present Electronically Signed On 10-24-2020 7:50:39 CDT by Edwin Guillen [email or web address] <ELECTRONICALLY SIGNED> By: Edwin Guillen MD, [facility] 10/24/20 0750 1747 46 Edwin Guillen MD, FACC /EPI
--- NOTE | 2020-10-24 07:51 | EKG ---
[address] [address] ELECTROCARDIOGRAM REPORT Name: YEE OSORIO Room #: 213-P ADM IN M.R.#: [id number] Admission: 10/23/20 Attend Phys: Pedro Luis Hernandez MD Discharge: Date of : 43 Report #: [id number] [facility] ED Test Date: 2020-10-23 Test Time: 21:20:03 Pat Name: YEE OSORIO Department: Room: 213 P Gender: F Finance Advisor: MPARK : 1945 Requested By: Pedro Luis Hernandez Order Number: [id number] MD: Edwin Guillen Measurements Intervals [place] Rate: 99 P: 74 CA: 128 QRS: 76 QRSD: 100 T: 59 QT: 346 QTc: 444 Interpretive Statements Sinus rhythm Compared to ECG 10/23/2020 17:47:23 Sinus tachycardia no longer present Electronically Signed On 10-24-2020 7:50:50 CDT by Edwin Guillen [email or web address] <ELECTRONICALLY SIGNED> By: Edwin Guillen MD, [facility] 10/24/20749 19 19 Edwin Guillen MD, FACC /EPI
[2020-10-24 08:00] VITALS: BP 157/105
--- NOTE | 2020-10-24 11:06 | NUR ---
Cm consult for hospice. CM visited with stephanie at bedside, she uses foul langue. Intro to cm and dcp. She reported yes i need vna to drawl lab work in the home, i don't drive. My neighbor are my family. spouse , son , daughter is meth head. need to call my dpoa friend jennifer if needed [phone]. I don't drive i am blind. wear home oxygen 2 l to sleep, 3 l sitting and 4 l when i am busy, like cooking and cleaning. No steps at home. Have walker with seat and basket. My boyfriend comes over on saturday. per stephanie. Cm education on hh vs hospice. She stated will if cant make it then hospice if not home health vna. End of visit she was going to get echo. Will cont following as needed for dc needs.
[2020-10-24 11:07] LABS: CALCIUM 8.4 mg/dL (8.5-10.1); CREATININE 0.8 mg/dL (0.6-1.0); POTASSIUM 4.9 mmol/L (3.5-5.1)
--- NOTE | 2020-10-24 12:08 | 2DMMODE ---
[facility] [place] [address] 2 D/M-MODE ECHOCARDIOGRAM Name: YEE OSORIO Room #: 213-P ADM IN M.R.#: [id number] Admission: 10/23/20 Attend Phys: Pedro Luis Hernandez MD Discharge: Date of : 43 Report #: [id number] THIS REPORT FOR: cc: Trevor Ramey David J. DO Santiago, Patrick MD [facility] ~ APPROVED REPORT Study performed: 10/24/2020 11:14:38 EXAM: Comprehensive 2D, Doppler, and color-flow Echocardiogram Patient Location: Bedside Room #: 213 Status: routine BSA: 1.96 HR: 76 bpm BP: 157/105 mmHg Rhythm: NSR Other Information Study Quality: Poor/not all measurements taken Technically limited study due to COPD, obesity. Indications NSTEMI. Hx: COPD, cancer, HTN, HLP. 2D Dimensions RVDd: 50.95 mm IVSd: 9.35 (7-11mm) LVDd: 45.94 mm PWd: 7.88 (7-11mm) LVDs: 39.70 (25-40mm) Aortic Root: 31.95 mm Volumes Left Atrial Volume (Systole) Single Plane 4CH: 40.94 mL Aortic Valve AoV Peak Jase.: 1.59 m/s AO Peak Gr.: 10.07 mmHg [facility] [address] [place] [address] 2 D/M-MODE ECHOCARDIOGRAM Name: YEE OSORIO Room #: 213-P ADM IN M.R.#: [id number] Admission: 10/23/20 Attend Phys: Pedro Luis Hernandez, Discharge: Date of : 43 Report #: [id number] Mitral Valve E/A Ratio: 0.7 MV Decel. Time: 301.42 ms MV E Max Jase.: 0.63 m/s MV A Jase.: 0.92 m/s MV PHT: 87.41 ms Tricuspid Valve TR Peak Jase.: 2.91 m/s RAP Estimate: 10.00 mmHg TR Peak Gr.: 34.00 mmHg PA Pressure: 44.00 mmHg Left Ventricle The left ventricle is normal size. Possible regional wall motion abnormalities. There is normal left ventricular wall thickness. Left ventricular systolic function is mildly decreased. 50% Mild diastolic dysfunction is present (impaired relaxation pattern). Right Ventricle Right ventricle is moderately dilated. Right ventricular systolic function is moderate to severely reduced. Atria The left atrium size is normal. Right atrium is moderately dilated. Aortic Valve The aortic valve is not well visualized. No aortic regurgitation is present. There is no aortic valvular stenosis. Mitral Valve The mitral valve is normal in structure. There is no mitral valve regurgitation noted. Tricuspid Valve The tricuspid valve is normal in structure. Mild tricuspid regurgitation. Pulmonic Valve Pulmonic valve is not well visualized. Great Vessels The aortic root is normal in size. Ascending aorta is not well visualized. IVC is dilated and collapses <50% with inspiration. [facility] [address] [place] [address] 2 D/M-MODE ECHOCARDIOGRAM Name: YEE OSORIO Room #: 213-P ADM IN M.R.#: [id number] Admission: 10/23/20 Attend Phys: Pedro Luis Hernandez, Discharge: Date of : 43 Report #: [id number] Pericardium There is no pericardial effusion. <Conclusion> Technically difficult study Normal ventricle size/wall thickness Ejection fraction 50% Grade 1 diastolic dysfunction Right ventricle not well seen but appears to be mildly dilated Moderate right atrial enlargement Color-flow Doppler studies performed of the aortic/mitral/tricuspid/pulmonary valve area Normal aortic/mitral valve structure and function Mild tricuspid valve insufficiency Pulmonary systolic pressure estimated 44 mmHg No pericardial effusion Normal aortic root size. <ELECTRONICALLY SIGNED> By: Edwin Guillen MD, FACC 10/24/208 07 07 Edwin Guillen MD, FACC /INF
[2020-10-24 12:28] VITALS: BP 154/101
--- NOTE | 2020-10-24 13:24 | NUR ---
PT AFEBRILE, ADEQUATE UOP, NO BM, APPROPRIATE APPETITE. HEPARIN GTT DC'D. ULTRA SOUND OF BREAST DONE AT BEDSIDE. NEUROLOGY CONSULTED FOR ORBITAL MASS. POSSIBLE GROUP SALES MANAGER TOMORROW, AWAITING NEUROLOGY CONSULT. PT HAS BEEN THOUROUGHLY UPDATED AND EDUCATED ON CONDITION AND POC. PT SLOWLY PROGRESSING TOWARDS POC.
[2020-10-24 16:49] VITALS: BP 194/103
[2020-10-24 19:54] VITALS: BP 214/103
[2020-10-24 22:00] VITALS: BP 179/103
[2020-10-24 23:06] LABS: GLYCOHEMOGLOBIN (HGB A1C) 5.7 % (4.8-5.6)
[2020-10-25 01:42] VITALS: BP 151/93
[2020-10-25 03:00] LABS: HEMATOCRIT 35.1 % (37.0-47.0); HEMOGLOBIN 11.6 gm/dL (12.0-15.0); RBC 3.98 mil/uL (4.20-5.00); RDW 15.8 % (10.5-14.5); WBC 7.4 thou/uL (4.0-11.0)
[2020-10-25 03:30] VITALS: BP 177/83
[2020-10-25 03:50] LABS: CALCIUM 8.1 mg/dL (8.5-10.1); CREATININE 0.5 mg/dL (0.6-1.0); MAGNESIUM 1.8 mg/dL (1.8-2.4); POTASSIUM 4.4 mmol/L (3.5-5.1)
[2020-10-25 04:27] LABS: TROPONIN-I 3.53 ng/mL (<0.06)
[2020-10-25 08:00] VITALS: BP 142/78
--- NOTE | 2020-10-25 11:44 | NUR ---
Discussed during los. No anticipated need for transfer. She [facility]. Referral sent to a if needed for dc per stephanie request.
[2020-10-25 15:30] VITALS: BP 135/71
[2020-10-25 20:15] VITALS: BP 116/53; BP 146/93
[2020-10-26 04:24] LABS: CALCIUM 8.5 mg/dL (8.5-10.1); CREATININE 0.6 mg/dL (0.6-1.0); MAGNESIUM 1.9 mg/dL (1.8-2.4); POTASSIUM 4.1 mmol/L (3.5-5.1)
[2020-10-26 04:36] LABS: HEMATOCRIT 34.1 % (37.0-47.0); HEMOGLOBIN 11.2 gm/dL (12.0-15.0); MCH 29.2 pg (26.0-34.0); MCHC 32.8 g/dL (28.0-37.0); RBC 3.83 mil/uL (4.20-5.00); RDW 16.4 % (10.5-14.5)
[2020-10-26 04:45] VITALS: BP 134/47
[2020-10-26 07:30] VITALS: BP 138/79
--- NOTE | 2020-10-26 08:21 | HC ---
[facility] [place] [address] [place] [address] CONSULTATION Name: YEE OSORIO Room #: 213-P ADM IN M.R.#: [id number] Admission: 10/23/20 Attend Phys: Pedro Luis Hernandez MD Discharge: Date of : 43 Report #: [id number] THIS REPORT FOR: cc: Trevor Ramey David J. DO McKittrick, Richard James MD ~ cc: Finesse Holguin MD, Elvis Zavaleta MD, Boone Shirley MD, José Antonio Morgan MD, Paulette Harkins MD, Shamir Cote DO, Hugo Tabares MD DATE OF SERVICE: 10/25/2020 REASON FOR CONSULTATION: Left orbital mass. 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 Here in the hospital, was found to have an elevated troponin consistent with possible [id number] SD. Because of her falling, had a CT head that shows a 1.7 cm left orbital mass that they are unsure if it is hematoma or solid, etc. She also has a history of a right-sided lung cancer for which she received radiation therapy in 08/2019 at [facility]. She reportedly was told recently that she was disease free. She is legally blind. Does not have any pain in this area. The patient denies any recent fevers or chills, nausea, vomiting. She does get short of breath. Does have a cough. Has also had some right breast discomfort for 3 weeks that she describes as very sharp like a knife going in and out, is better when she holds the breast up or wears a bra. She is not aware of any nipple bleeding or nipple discharge. She had a breast ultrasound yesterday that was unrevealing. Her CT chest did not reveal any abnormalities either. This is only 3 weeks nature. She denies any bowel changes such as constipation or diarrhea. Does have some leg swelling, which is periodic. Does also have repaired bunion on her right foot. PAST MEDICAL HISTORY: Notable for the nonsmall cell lung cancer. At [facility], she is status post what sounds like SBRT or radiation there in 08/2019, currently [place]UG[place]. Also, history of COPD, respiratory failure, hypertension, hypothyroidism, osteoarthritis, hyperlipidemia, legally blind secondary to macular degeneration, right shoulder surgery x3, hysterectomy. Recent [id number] myocardial infarction. 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. Past smoker, past alcohol, though I do note think was excess. Has had some CBD brownies within the last month. She does have 2 cats at home, one named Edward, the other named Mariaelena Cuevas because of one of her favorite aunts. Has been preceded in by her and a son and I believe a brother and several other family members. She is somewhat distressed about this. [facility] [address] [place] [address] CONSULTATION Name: YEE OSORIO CHRISTINERICHA Room #: 213-P ADM IN M.R.#: [id number] Admission: 10/23/20 Attend Phys: Pedro Luis Hernandez MD Discharge: Date of : 43 Report #: [id number] CURRENT MEDICATIONS: At this time in the hospital include lisinopril 20 b.i.d., ipratropium and albuterol inhalation therapy, hydralazine 10 mg q.6h. p.r.n. IV, azithromycin 500 mg q.24h., guaifenesin 1200 mg b.i.d., atorvastatin 80 mg at bedtime, ceftriaxone 2 grams q.24h., aspirin 81 daily, ezetimibe 10 mg daily, gabapentin 1200 b.i.d., docusate 100 b.i.d., duloxetine 60 b.i.d., loratadine 10 daily, famotidine 20 daily, methylprednisolone 40 daily, budesonide respiratory therapy b.i.d., morphine p.r.n., tramadol p.r.n., tizanidine 4 mg t.i.d. p.r.n., Benadryl p.r.n., nitroglycerin p.r.n. PHYSICAL EXAMINATION: GENERAL: The patient appears her stated age. VITAL SIGNS: Height is 5 feet 5 inches or 165.1 cm, weight is 211.8 pounds or 96.1 kilograms. Blood pressure 142/78, respirations 18, O2 sat 90%, pulse 81, temperature afebrile. The patient's feet is slightly cushingoid in appearance or somewhat obese. LUNGS: Somewhat distant and a little bit less, especially on the right side. HEART: Regular rate. LYMPHATICS: No enlarged lymph nodes in the supraclavicular, cervical, axillary region. BREASTS: Not performed. ABDOMEN: Obese. No definite masses. EXTREMITIES: Without clubbing, cyanosis. Does have some probably 1-2 mm edema in her ankles. LABORATORY DATA: Here shows a hemoglobin of 11.6, white count 7.4, platelets of 146, MCV of 88. AST 46, alkaline phosphatase I think 88, creatinine 0.5. Ultrasound right breast was normal. CTA showed the past right posterior infiltration or mass measuring 4 x 3.5 cm, negative for PE. CT head had 1.7 cm left orbital mass. ASSESSMENT AND PLAN: 1. Left orbital mass on CT head measured 1.7 cm. In discussion with other providers, this could be a complication or side effect past injections or macular degeneration. We will await Dr. Harkins's input about this. Might also consider MRI of this area or ultrasound to see if this is solid versus cystic or mass. If it is chronic in nature, then anticoagulation is probably reasonable to consider. If this looks like it is more of a recent bleed, then I would be somewhat leery to add anticoagulation as that could be potentially dangerous. We will await Dr. Harkins's input. 2. Non-[facility]. Defer to Dr. Tabares and others management. 3. History of right lung cancer, status post radiation therapy in 08/2019 in [facility], not known to be recurrent. 4. legally blind secondary to macular degeneration. We will interact with the patient allowing for the fact that she cannot see written materials. 5. Chronic obstructive pulmonary disease. Inhalation therapy and oxygen per [address] [address] CONSULTATION Name: YEE OSORIO Room #: 213-P ADM IN M.R.#: [id number] Admission: 10/23/20 Attend Phys: Pedro Luis Hernandez MD Discharge: Date of : 43 Report #: [id number] others. 6. Chronic oxygen use per others. 7. History of hypertension per others. 8. Hyperlipidemia, per others. 5. Hypothyroid, replaced per others. 6. Three weeks of right breast pain with ultrasound being negative, may consider other imaging. We will follow with you. <ELECTRONICALLY SIGNED> By: Rory Braswell MD 10/26/20 0821 [id number] Rory Braswell MD /nt
[2020-10-26 11:00] VITALS: BP 149/71
[2020-10-26 15:15] VITALS: BP 158/73
--- NOTE | 2020-10-26 16:23 | NUR ---
ASSESSMENT CHARTED - MEDS PER JUN - PLACED LIDOCAINE PATCH TO PT R SCAPULA AREA WITH GOOD RELIEF ON PAIN. [facility] DIET AND FLUIDS. UP IN ROOM WITH USE OF WALKER WITH STBY ASSIST. PT HURRIDLEY WALKS WITH USE OF WALKER RATHER THEN SLOWING DONE AND BEING SAFER. PT ENCOURAGED TO SLOW DOWN. SEEN BY PHYS THERAPY TODAY. PT RESTING QUIETLY AT THE PRESENT TIME WITH NO CO'S.
[2020-10-26 20:21] VITALS: BP 154/70
[2020-10-26 21:29] LABS: HEMATOCRIT 37.1 % (37.0-47.0); HEMOGLOBIN 12.2 gm/dL (12.0-15.0); MCH 28.8 pg (26.0-34.0); MCHC 32.9 g/dL (28.0-37.0); MCV 87.6 fL (80.0-100.0); RBC 4.24 mil/uL (4.20-5.00); RDW 16.2 % (10.5-14.5); WBC 8.5 thou/uL (4.0-11.0)
[2020-10-27 04:45] VITALS: BP 132/61; BP 178/95
--- NOTE | 2020-10-27 05:46 | NUR ---
ASSESSMENTS CHARTED, MEDS CHARTED GIVEN. PATIENT RESTING IN BED DURING SHIFT. PATIENT STATES THIS HOSPITAL IS RUN DOWN AND THE EQUIPMENT IS OLD, BUT THE NURSING STAFF MAKES THIS HOSPITAL. NEW IV IN LEFT WRIST, OTHERS DC'D. ABX GIVEN. UP WITH WALKER TO BATHROOM. ICE ON SCAPULA FOR CHRONIC PAIN. LEVOTHYROXINE RESTARTED. PATIENT NEEDS TO SEE AN EYE DOCTOR, BUT [facility] DOES NOT TAKE HER INSURANCE. FALL PRECAUTIONS IN PLACE DURING SHIFT.
[2020-10-27 05:49] LABS: HEMATOCRIT 37.5 % (37.0-47.0); HEMOGLOBIN 12.3 gm/dL (12.0-15.0); MCH 28.5 pg (26.0-34.0); MCHC 32.6 g/dL (28.0-37.0); MCV 87.4 fL (80.0-100.0); RBC 4.3 mil/uL (4.20-5.00); RDW 16.1 % (10.5-14.5); WBC 8.8 thou/uL (4.0-11.0)
[2020-10-27 06:15] LABS: CALCIUM 8.7 mg/dL (8.5-10.1); CREATININE 0.7 mg/dL (0.6-1.0); MAGNESIUM 1.9 mg/dL (1.8-2.4); POTASSIUM 3.7 mmol/L (3.5-5.1)
[2020-10-27 07:50] VITALS: BP 169/70
[2020-10-27 12:00] VITALS: BP 158/65
--- NOTE | 2020-10-27 15:48 | NUR ---
ASSESSMENT CHARTED - MEDS PER [facility] DIET AND FLUIDS. SEEN BY [facility]ERAP[facility] - UP TO THE CHAIR. NO CO'S OF NASUEA. LIDOCAINE PATCH TO R SCAPULA AREA WITH RELIEF - PT TO HAVE SCAPULA AREA XRAYED THIS AFTERNOON. PT TO HAVE CATH IN THE AM - TO BE NPO AFTER MN. GIVEN LASIX ORDERED. DIFULCAN OINTMENT ORDERED TO PAIN. MAT ALSO HAVE ATIVAN BID FOR ANXIETY. APPEARS TO BE RESTING AT THE PRESENT TIME WITH NO CO'S.
[2020-10-27 16:19] VITALS: BP 153/83
[2020-10-27 20:00] VITALS: BP 154/75
[2020-10-28 02:57] LABS: HEMATOCRIT 39.7 % (37.0-47.0); MCHC 32.8 g/dL (28.0-37.0); MCV 88.4 fL (80.0-100.0); RBC 4.49 mil/uL (4.20-5.00); RDW 16.7 % (10.5-14.5); WBC 9.3 thou/uL (4.0-11.0)
[2020-10-28 03:53] LABS: CALCIUM 8.6 mg/dL (8.5-10.1); CREATININE 0.7 mg/dL (0.6-1.0); POTASSIUM 4.5 mmol/L (3.5-5.1)
[2020-10-28 05:44] VITALS: BP 153/72
--- NOTE | 2020-10-28 06:26 | NUR ---
pt resting quietly in room thru the noc, prn pain med given for c/o r scapula pain, vss, npo for c. cath today, will con't to monitor per ppoc.
[2020-10-28 08:38] VITALS: BP 181/92
[2020-10-28 11:07] VITALS: BP 159/67
[2020-10-28 11:30] VITALS: BP 119/66; BP 142/76
--- NOTE | 2020-10-28 11:46 | CATHLAB ---
[facility] [place] [address] [place] [address] INVASIVE PROCEDURE REPORT Name: YEE OSORIO Room #: 213-P ADM IN M.R.#: [id number] Admission: 10/23/20 Attend Phys: Pedro Luis Hernandez MD Discharge: Date of : 43 Report #: [id number] THIS REPORT FOR: cc: Trevor Ramye David J. DO Park, Jin S. MD ~ APPROVED REPORT Study performed: 10/28/2020 08:05:27 Patient Details Patient Status: In-Patient Room #: 213 The patient is a 75 year-old female Event Personnel Hugo Tabares Plate Worker, Angela Pickett RN RN, Mary Reardon RTR, Karen Triplett Jordan RTR Monitor Procedures Performed Art Access - R femoral artery* Left Heart Cath w/or w/o Coronaries [id number] [facility] [id number] Initial Mod Sed Same Phys/QHP [facility] [id number] 75419 Mod Sed Same Phys/QHP Ea [id number] Hemostasis with Manual pressure Indication Non-STEMI , Syncope, Chest pain Risk Factors Obesity, Chronic Lung DiseaseHypercholesterolemiaPhysical Activity, Hypertension Procedure Narrative The Right Groin^ was infiltrated with 1% Lidocaine subcutaneous anesthesia. A PINNACLE 4FR Sheath #[id number] sheath was inserted into the RFA^. Coronary angiography was performed using coronary diagnostic catheters. The right coronary system was accessed and visualized with a JR4 catheter. The left coronary system was accessed and visualized with a JL4 catheter. The left ventricle was accessed and visualized with a PIGTAIL catheter. Left ventricular/Aortic Valve gradient assessed via catheter pullback. Left ventriculogram was performed in 30 degree projection. Hemostasis was obtained with manual pressure following sheath removal without any complications. The patient tolerated the procedure well and there were no complications associated with the procedure. There was no [facility] [address] [place] [id number] INVASIVE PROCEDURE REPORT Name: OSORIOYEE FREDERICK Room #: 213-P [facility] IN ..#: [id number] Admission: 10/23/20 Attend Phys: Pedro Luis Hernandez, Discharge: Date of : 43 Report #: [id number] hematoma. Intraoperative Conscious Sedation Sedation start time: 826 Case end Time: 903 Fentanyl 50 mcg Versed 1 mg Fluoro Time: 1.30 minutes Dose: DAP 5123.90 cGycm2 677 mGy Contrast Type and Amount: Omnipaque 75 ml Coronary Angiography The patient's coronary anatomy is right dominant. Diagnostic Cath Left Main The left main artery is a large-caliber vessel, patent with no flow-limiting lesions. LAD The LAD is a moderate-sized caliber vessel, traverses the anterior wall and wraps around the apex. There is mild diffuse disease in the proximal segment, 20%. Diagonal 1 This is a small to moderate-sized caliber vessel, patent with no flow-limiting lesions. Diagonal 2 This is a small to moderate-sized caliber vessel, patent with no flow-limiting lesions. Circumflex The left circumflex artery is a moderate-sized caliber vessel, with no flow-limiting lesions. OM1 This is a small to moderate-sized caliber vessel, patent with no flow-limiting lesions. OM2 The second obtuse marginal artery is larger of the 2 branches. There is mild diffuse disease in the proximal segment, 30%. This vessel divides into 2 branches. Right Coronary The RCA is a dominant vessel with mild diffuse disease in the proximal segment, 30%. There is mild calcification in this segment. R PDA The PDA is a moderate-sized caliber vessel, patent with no flow-limiting lesions. RPLV This is a small caliber vessel, patent with no flow-limiting lesions. Left Ventriculography The left ventricle is normal in size with normal contractility. The left ventricular ejection fraction is estimated to be 55-60%. Hemodynamics The aortic pressure is 172/69 mmHg with a mean of 113 mmHg. The left [facility] [address] [place] [address] INVASIVE PROCEDURE REPORT Name: YEE OSORIO Room #: 213-P [facility] IN .R.#: [id number] Admission: 10/23/20 Attend Phys: Pedro Luis Hernandez, Discharge: Date of : 43 Report #: [id number] ventricular pressure is 181/12 mmHg with a mean of mmHg. The left ventricular end diastolic pressure is 32 mmHg. Conclusion 1. There is mild, nonobstructive CAD in the LAD, first obtuse marginal artery and RCA. 2. There is normal LV systolic function. 3. Recommend risk factor management. <ELECTRONICALLY SIGNED> By: Hugo Tabares MD 10/28/20 1145 1145 1145 Hugo Tabares MD /INF
[2020-10-28] MEDS ORDERED: METOPROLOL TART25 MG PO (12:20)
[2020-10-28] MEDS ORDERED: CEFDINIR300 MG PO (12:20)
[2020-10-28] MEDS ORDERED: MIRALAX17 GM PO (12:20)
[2020-10-28] MEDS ORDERED: PREDNISONE 20 M20 MG PO (12:20)
[2020-10-28] MEDS ORDERED: COLACE100 MG PO (12:20)
[2020-10-28 12:38] VITALS: BP 159/67
--- NOTE | 2020-10-28 12:40 | NUR ---
HH orders faxed to [facility] with anticipated dc to home today. The pt has home o2 in place. [employer] spoke with intake and they can accept and they have had her on service in the recent past.
== END 2020-10-28 14:15 | disposition home health service (06) | DRG 280 ==
LOC: ER 17:15 → 2N 21:38 → EROBS 21:38 → 2N 23:30
PROVIDERS: Nurse Practitioner Family; ADMIT Internal Medicine; ATTEND Internal Medicine
PROC: B2151ZZ Fluoroscopy of Left Heart using Low Osmolar Contrast (ICD-10-PCS; principal; 2020-10-23)
PROC: B2111ZZ Fluoroscopy of Multiple Coronary Arteries using Low Osmolar Contrast (ICD-10-PCS; principal; 2020-10-23)
PROC: 4A023N7 Measurement of Cardiac Sampling and Pressure, Left Heart, Percutaneous Approach (ICD-10-PCS; principal; 2020-10-23)
DX: I21.4 Non-ST elevation (NSTEMI) myocardial infarction (principal); J96.21 Acute and chronic respiratory failure with hypoxia; J96.22 Acute and chronic respiratory failure with hypercapnia; N17.9 Acute kidney failure, unspecified; Z96.611 Presence of right artificial shoulder joint; J43.9 Emphysema, unspecified; I10 Essential (primary) hypertension; E03.9 Hypothyroidism, unspecified; E78.5 Hyperlipidemia, unspecified; M19.90 Unspecified osteoarthritis, unspecified site; Z66 Do not resuscitate; E87.5 Hyperkalemia; N64.4 Mastodynia; Z60.2 Problems related to living alone; R53.81 Other malaise; K59.00 Constipation, unspecified; T40.605A Adverse effect of unspecified narcotics, initial encounter; Z20.822 Contact with and (suspected) exposure to COVID-19; G47.00 Insomnia, unspecified; S05.12XA Contusion of eyeball and orbital tissues, left eye, initial encounter; F41.9 Anxiety disorder, unspecified; R26.89 Other abnormalities of gait and mobility; R91.8 Other nonspecific abnormal finding of lung field; Z99.81 Dependence on supplemental oxygen; Z90.710 Acquired absence of both cervix and uterus; Z87.891 Personal history of nicotine dependence; Z88.6 Allergy status to analgesic agent; Z88.8 Allergy status to other drugs, medicaments and biological substances; Z85.118 Personal history of other malignant neoplasm of bronchus and lung; Z92.3 Personal history of irradiation; Z79.82 Long term (current) use of aspirin; Z79.899 Other long term (current) drug therapy; W18.39XA Other fall on same level, initial encounter; Y93.89 Activity, other specified; Y92.89 Other specified places as the place of occurrence of the external cause; Y99.8 Other external cause status
CPT/HCPCS: 10081